=== PATIENT | male | born 1970 | race African-American/Black ===

== ENCOUNTER 2021-03-30 18:47 | Emergency (ER) | payer OTHER, SELFPAY ==
--- NOTE | ~2021-03-30 | XR_ITS ---
EXAMINATION: XR FOOT, RIGHT CLINICAL INFORMATION: Evaluate for osteomyelitis. COMPARISON: None TECHNIQUE: AP, lateral, and oblique views of the right foot. FINDINGS: No acute fracture or dislocation. No periosteal reaction, cortical destruction or intramedullary lucency to suggest osteomyelitis. There is a plate and screws across the distal fibula laterally. No evidence of hardware failure or complication. There is soft tissue swelling dorsal to the metatarsals. XR/XR foot RT 2V IMPRESSION: No radiographic evidence of osteomyelitis. Soft tissue swelling dorsal to the metatarsals.
[2021-03-30 19:29] VITALS: BP 169/111; PULSE 92; RESP 18; TEMP 36.9; O2SAT 97; BMI 30.4
--- NOTE | 2021-03-30 20:18 | ED.LOWEXIN ---
HPI - Extremity Injury (Lower) General Chief Complaint: Extremity Injury, Lower Stated Complaint: bug bite Time Seen by Provider: 03/30/21 20:13 Source: patient Mode of arrival: ambulatory Limitations: no limitations History of Present Illness HPI Narrative: 50-year-old male came in for evaluation of her right foot pain and swelling started 2 days ago, patient declined any injury or trauma to the right foot, no fever , or chills, never had history of similar symptoms. no history of gout. Related Data Previous Rx's Medication Instructions Recorded indomethacin 50 mg PO BID #10 cap 03/30/21 prednisone 20 mg PO BID #10 tab 03/30/21 Allergies Allergy/AdvReac Type Severity Reaction Status Date / Time No Known Allergies Allergy Unknown N/A Verified 03/30/21 19:28 [NO KNOWN ALLERGIES] Review of Systems Review of Systems: All other systems are reviewed and are negative Constitutional: Reports as per HPI and Reports no additional constitutional complaints Eyes: Reports as per HPI and Reports no additional eye complaints Reports system reviewed and no additional complaints, except as documented Cardiovascular: Reports as per HPI and Reports no additional cardiovascular complaints Respiratory: Reports as per HPI and Reports no additional respiratory complaints Gastrointestinal: Reports as per HPI and Reports no additional gastrointestinal complaints Genitourinary: Reports no additional female genitourinary complaints Musculoskeletal: Reports no additional musculoskeletal complaints Skin/Breast: Reports system reviewed and no additional complaints, except as docu Psychiatric: Reports no additional psychiatric complaints Endocrine: Reports no additional endocrine complaints Hematologic/Lymphatic: Reports no additional hematologic/lymphatic complaints Allergic/Immunologic: Reports no additional allergic/immunologic complaints Reports system reviewed and no additional complaints, except as documented and Reports Abnormal speech present [facility] Past Medical History Medical History Anxiety EtOH dependence HTN (hypertension) Stomach ulcer Social History Social History Advance Directives: No Physical Exam Vital Signs: Vital Signs: Last Vital Signs Temp 98.5 F 03/30/21 19:29 Pulse 92 03/30/21 19:29 Resp 18 03/30/21 19:29 BP 169/111 H 03/30/21 19:29 Pulse Ox 97 03/30/21 19:29 Body Mass Index 30.4 vital signs have been reviewed as appeared to be correct. Blood pressure Is high. Heart rate normal. Respiration rate normal. Temperature normal. Oxygen saturation normal. Appearance: Alert. Oriented X3. No acute distress. Head: Normal external exam. Normocephalic. Atraumatic. No Zarate signs noted. No raccoon eyes noted Eyes: PERRLA. EOMI. Conjunctiva and sclera normal. Eyelids normal. ENT: TM's Normal. Pharynx normal. Uvula midline. Moist mucous membranes. No trismus noted. No drooling noted. No muffled voice noted. Neck: Normal inspection. Neck supple. FROM. No adenopathy. Thyroid Normal. No meningeal signs. No neck mass noted. CVS: Normal heart rate and rhythm. Heart sound normal. No murmurs noted. Pulses normal throughout. Respiratory: No respiratory distress. Painless inspiration. Breath sounds normal. No wheezes/rales/rhonchi noted. Chest nontender. No accessory muscle usage noted or decreased air movement noted. Abdomen: Soft and nontender. Bowel sounds normal in all 4 quadrants. No distention noted. No organomegaly noted. No visible injury noted. Back: No CVA tenderness. Full range of motion noted. Skin: Skin warm and dry. Normal skin color. Normal skin turgor. No rashes/lesions/lacerations noted. Extremities: left foot with tenderness to touch mostly around the 1st and 2nd toe, with swelling at the base of the 1st and 2nd toe, no deformity, mild redness at the bases of the toes. Neuro: Oriented X 3. No motor deficit. No sensory deficit. Reflexes normal. Course Course Course Narrative: assessment and plan. Physical exam and x-ray findings more consistent of a gout arthritis. Start the patient on prednisone course for 5 days and NSAIDs. With follow-up with his primary doctor. Patient was instructed to follow up with his PCP for high blood pressure management. MDM - Extremity Injury (Lower) Imaging Data Right foot x-ray: Radiologist's impression: No radiographic evidence of osteomyelitis. Soft tissue swelling dorsal to the metatarsals. Discharge Plan Discharge Clinical Impression: Gout, arthritis Patient Disposition: Home, Self-Care Instructions: Gout (ED) Additional Instructions: follow-up with your primary doctor because of luck pressure today is elevated and need further management. Prescriptions: New prednisone 20 mg tablet 20 mg PO BID Qty: 10 RF: 0 indomethacin 50 mg capsule 50 mg PO BID Qty: 10 RF: 0 Referrals: Physician,Unknown [Primary Care Provider] - 2 days
[2021-03-30] MEDS: predniSONE 20 MG TABLET 40 MG PO (20:50)
[2021-03-30] MEDS: Indomethacin 25 MG CAPSULE 50 MG PO (20:50)
== END 2021-03-30 20:53 | disposition home or self-care (01) ==
LOC: HO.ED 20:26
PROVIDERS: Emergency Provider Emergency Medicine
DX: M10.9 Gout, unspecified (principal); I10 Essential (primary) hypertension
CPT/HCPCS: 73620; 99282; 99283